=== PATIENT | female | born 1955 | race Caucasian/White ===

== ENCOUNTER 2017-09-24 23:42 | Emergency (ER) | payer MEDICAID ==
[~2017-09-24] VITALS: Ht 170.2 cm; Wt 80.0 kg
[~2017-09-24 23:42] MED LIST: LEVO25TA2 PO
[2017-09-24 23:48] VITALS: BP 120/80
== END 2017-09-25 05:49 | disposition home or self-care (01) ==
LOC: ED 23:59
DX: F10.120 Alcohol abuse with intoxication, uncomplicated (principal); J44.9 Chronic obstructive pulmonary disease, unspecified; E78.5 Hyperlipidemia, unspecified; E03.9 Hypothyroidism, unspecified; J43.9 Emphysema, unspecified; Z88.5 Allergy status to narcotic agent
CPT/HCPCS: 36415; 80307; 99283